=== PATIENT | female | born 1985 | race Caucasian/White ===

== ENCOUNTER 2019-03-19 20:19 | Emergency (ER) | payer MEDICAID | END 2019-03-19 22:15 | disposition left against medical advice (07) | LOC: JD.ED 20:19 | DX: Z53.21 Procedure and treatment not carried out due to patient leaving prior to being seen by health care provider (principal) ==

== ENCOUNTER 2019-03-20 13:07 | Emergency (ER) | payer MEDICAID ==
[2019-03-20] MEDS ORDERED: Sodium Chloride 0.9% 10 ML Syringe FLUSH PRN (14:12)
[2019-03-20] MEDS ORDERED: Ketorolac 30 MG/ML SDV IVPUSH ONE (14:16)
[2019-03-20] MEDS ORDERED: cefTRIAXone 2 GM in Sodium Chloride 0.9% 100 ML IV ONE (14:16)
--- NOTE | 2019-03-20 14:44 | EDM.PDOC ---
ED HPI GENERAL MEDICAL PROBLEM - General Chief Complaint: Abdominal Pain Stated Complaint: LT SIDE PAIN Time Seen by Provider: 03/20/19 13:33 Source of Information: Reports: Patient, RN Notes Reviewed History Limitations: Reports: No Limitations - History of Present Illness INITIAL COMMENTS - FREE TEXT/NARRATIVE: Patient is a 33-year-old female who presents to the ED for evaluation of left- sided flank pain. The patient states that this pain started yesterday. She notes that she has a history of previous kidney stones, on the right side. She states that the pain is sharp and stabbing and constantly there. She states it is hard to find a comfortable position. She also notes a history of chronic back problems; spinal stenosis, and degenerative disc disease. She notes that she also has a foul smell to her urine, but denies any dysuria or frequency or urgency. The patient has recently moved here from [place], and has not been able to set up primary care in this state, however she was care for her chronic issues in [place]. She is in the process of transferring her records so that she can seek management. She states that her pain is mostly in her left flank and into her left back. 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: Musculoskeletal History: Reports: Back Pain, Chronic Endocrine/Metabolic History: Reports: Hypothyroidism - Past Surgical History Female Surgical History: Reports: Tubal Ligation Social & Family History - Family History Family Medical History: Noncontributory - Tobacco Use Smoking Status *Q: Current Every Day Smoker Years of Tobacco use: 15 Packs/Tins Daily: 0.2 - Caffeine Use Caffeine Use: Reports: Coffee - Recreational Drug Use Recreational Drug Use: No ED ROS GENERAL - Review of Systems Review Of Systems: See Below Constitutional: Denies: Fever, Chills HEENT: Reports: No Symptoms Respiratory: Reports: No Symptoms Cardiovascular: Reports: No Symptoms Endocrine: Reports: No Symptoms GI/Abdominal: Denies: Constipation, Diarrhea, Nausea, Vomiting : Reports: Flank Pain (Left), Other (foul smelling urine). Denies: Discharge , Dysuria, Frequency, Urgency Musculoskeletal: Reports: Back Pain (chronic) Skin: Reports: No Symptoms Neurological: Reports: No Symptoms Psychiatric: Reports: No Symptoms Hematologic/Lymphatic: Reports: No Symptoms Immunologic: Reports: No Symptoms ED EXAM, RENAL/ - Physical Exam Exam: See Below Exam Limited By: No Limitations General Appearance: Alert, WD/WN, No Apparent Distress Eye Exam: Bilateral Eye: Normal Inspection Ears: Normal External Exam Nose: Normal Inspection Throat/Mouth: Normal Inspection, Normal Lips, Normal Teeth, Normal Gums, Normal Oropharynx, Normal Voice, No Airway Compromise Head: Atraumatic, Normocephalic Neck: Normal Inspection Respiratory/Chest: No Respiratory Distress, Lungs Clear, Normal Breath Sounds, No Accessory Muscle Use, Chest Non-Tender Cardiovascular: Normal Peripheral Pulses, Regular Rate, Rhythm, No Murmur GI/Abdominal: Normal Bowel Sounds, Soft, No Distention, Tender (left lateral upper quadrant) Back Exam: Normal Inspection, Full Range of Motion, CVA Tenderness (L), CVA Tenderness (R) Extremities: Normal Inspection, Normal Capillary Refill Neurological: Alert, Oriented, Normal Cognition, No Motor/Sensory Deficits Psychiatric: Normal Affect, Normal Mood Skin Exam: Warm, Dry, Intact, Normal Color, No Rash Course - Vital Signs Last Recorded V/S: Last Vital Signs Temp 99.3 F 03/20/19 13:17 Pulse 83 03/20/19 13:17 Resp 18 03/20/19 13:17 BP 121/73 03/20/19 13:17 Pulse Ox 99 03/20/19 13:17 - Orders/Labs/Meds Orders: Active Orders 24 hr Category Date Time Status Peripheral IV Care [RC] . DIRECTED Care 03/20/19 14:15 Ordered CULTURE URINE [RM] Routine Lab 03/20/19 14:15 Ordered Sodium Chloride 0.9% [Saline Flush] Med 03/20/19 14:12 Ordered 10 ml FLUSH ASDIRECTED PRN Peripheral IV Insertion Adult [OM.PC] Routine Oth 03/20/19 14:12 Ordered Medication Orders Sodium Chloride (Saline Flush) 10 ml FLUSH ASDIRECTED PRN PRN Reason: Keep Vein Open Last Admin: 03/20/19 14:30 Dose: 10 ml Labs: Laboratory Tests 03/20/19 03/20/19 03/20/19 Range/Units 13:40 14:20 14:20 WBC 8.62 (3.98-10.04) K/mm3 RBC 4.15 (3.98-5.22) M/mm3 Hgb 13.0 (11.2-15.7) gm/L Hct 39.0 (34.1-44.9) % MCV 94.0 (79.4-94.8) fl MCH 31.3 (25.6-32.2) pg MCHC 33.3 (32.2-35.5) g/dl RDW Std Deviation 42.4 (36.4-46.3) fL Plt Count 203 (182-369) K/mm3 MPV 9.9 (9.4-12.3) fl Neutrophils % (Manual) 79 H (40-60) % Band Neutrophils % 0 (0-10) % Lymphocytes % (Manual) 12 L (20-40) % Atypical Lymphs % 0 % Monocytes % (Manual) 8 (2-10) % Eosinophils % (Manual) 0 L (0.7-5.8) % Basophils % (Manual) 1 (0.1-1.2) Platelet Estimate Adequate RBC Morph Comment Normal Sodium 142 (136-145) mEq/L Potassium 3.7 (3.5-5.1) mEq/L Chloride 106 (98-107) mEq/L Carbon Dioxide 27 (21-32) mEq/L Anion Gap 12.7 (5-15) BUN 11 (7-18) mg/dL Creatinine 0.8 (0.55-1.02) mg/dL Est Cr Clr Drug Dosing 90.00 mL/min Estimated GFR (MDRD) > 60 (>60) mL/min BUN/Creatinine Ratio 13.8 L (14-18) Glucose 92 (74-106) mg/dL Calcium 8.7 (8.5-10.1) mg/dL Total Bilirubin 0.7 (0.2-1.0) mg/dL AST 14 L (15-37) U/L ALT 20 (14-59) U/L Alkaline Phosphatase 99 (46-116) U/L Total Protein 7.1 (6.4-8.2) g/dl Albumin 3.9 (3.4-5.0) g/dl Globulin 3.2 gm/dL Albumin/Globulin Ratio 1.2 (1-2) Urine Color Yellow (Yellow) Urine Appearance Slt cloudy H (Clear) Urine pH 7.0 (5.0-8.0) Ur Specific [place] 1.020 (1.005-1.030) Urine Protein 1+ H (Negative) Urine Glucose (UA) Negative (Negative) Urine Ketones Negative (Negative) Urine Occult Blood 2+ H (Negative) Urine Nitrite Negative (Negative) Urine Bilirubin Negative (Negative) Urine Urobilinogen 1.0 (0.2-1.0) Ur Leukocyte Esterase 1+ H (Negative) Urine RBC 30-40 H (0-5) /hpf Urine WBC 20-30 H (0-5) /hpf Ur Squamous Epith Cells 0-5 (0-5) /hpf Urine Bacteria Few (FEW) /hpf Urine Mucus Rare (FEW) /hpf Meds: Medications Generic Name Dose Route Start Last Admin Trade Name Freq PRN Reason Stop Dose Admin Sodium Chloride 10 ml 03/20/19 14:12 03/20/19 14:30 Saline Flush FLUSH 10 ml ASDIRECTED PRN Administration Keep Vein Open Discontinued Medications Generic Name Dose Route Start Last Admin Trade Name Freq PRN Reason Stop Dose Admin Ceftriaxone Sodium 2 gm/ 100 mls @ 200 mls/hr 03/20/19 14:16 03/20/19 14:29 Sodium Chloride IV 03/20/19 14:45 200 mls/hr ONETIME ONE Administration Ketorolac Tromethamine 30 mg 03/20/19 14:16 03/20/19 14:29 Toradol IVPUSH 03/20/19 14:17 30 mg ONETIME ONE Administration - Re-Assessments/Exams Free Text/Narrative Re-Assessment/Exam: 03/20/19 14:43 Patient presents to the ED for the evaluation of left flank pain. The triage nurse did obtain a UA at time of triage, and by the time the patient was evaluated UA resulted and didn't demonstrate some increased white blood cells and red blood cells in her urine, possible may be kidney stone with UTI superimposed. Have ordered IV to be placed, a CBC for further evaluation, and 2 g IV Rocephin for initial management. 03/20/19 15:[address] has been completed, and demonstrates the 3.2 mm stone within the proximal left ureter with minimal left kidney hydronephrosis. Several nonobstructing calculi seen within the right kidney area the largest nonobstructing stone within the right kidney measures 5.8 mm. Renal. Meds are slightly hyperdense raising possibility of medullary sponge kidney. Otherwise no other abnormalities are seen on the abdomen and pelvis CT. After her dose of antibiotics is done, I will provide the patient with some pain medications and recommend that she increase her oral fluid intake to try to help pass the stone. Will give recommendations for primary care providers in our area so that she may follow up for today's visit and establish care for her chronic problems. 03/20/19 15:46 Patient is reassessed at bedside, and feels a little bit better. I will provide the patient with some [place] 10/325's, Cipro, and a prescription for MiraLAX, she may fill the MiraLAX in [place] also portable to do so with insurance. As this is what she preferred. Departure - Departure Time of Disposition: 15:48 Disposition: Home, Self-Care 01 Condition: Fair Clinical Impression: Kidney stone UTI (urinary tract infection) Qualifiers: Urinary tract infection type: acute pyelonephritis Qualified Code(s): N10 - Acute pyelonephritis - Discharge Information *PRESCRIPTION DRUG MONITORING PROGRAM REVIEWED*: No *COPY OF PRESCRIPTION DRUG MONITORING REPORT IN PATIENT EUGENIO: No Prescriptions: Ciprofloxacin [Ciprofloxacin HCl] 500 mg PO BID #20 tab Hydrocodone/Acetaminophen [Hydrocodon-Acetaminophn 10-325] 1 tab PO Q6H #28 tablet Polyethylene Glycol 3350 [MiraLAX] 1 capful PO DAILY #1 cont Instructions: Urinary Tract Infection, Adult, [id number], Dietary Guidelines to Help Prevent Kidney Stones, Kidney Stones, [id number] Referrals: PCP,None [Primary Care Provider] - Forms: ED Department Discharge Additional Instructions: You have been evaluated in the ED today for your left sided flank pain. Your CT did demonstrate a kidney stone in your left ureter, this is the tube that goes from the kidney to your bladder. This should clear itself in a few days. You have been provided with a strainer to strain her urine to make sure that the stone has passed. Your right kidney also demonstrated kidney stones within the kidney as well. Your CT raises concern for medullary sponge kidney disease, this type of disease makes you more prevalent to getting kidney stones more frequently. Recommend that you increase her oral fluid intake to try to help pass the kidney stones. You have been provided with a prescription for [place] 10/325, Cipro 500 mg twice a day 10 days, and MiraLAX 1 capful daily. Please follow up with a primary care provider of your choice, our clinic number [phone]. Please do so within the next week or so for follow-up of this ER visit, and management of your chronic issues. Recommend that you transfer your old records from the facility in [place] to the facility of your choosing so that you may receive better follow-up care for your chronic issues. Please return to the ED if your symptoms should change or worsen. - My Orders Last 24 Hours: My Active Orders 03/20/19 14:12 Sodium Chloride 0.9% [Saline Flush] 10 ml FLUSH ASDIRECTED PRN Peripheral IV Insertion Adult [OM.PC] Routine 03/20/19 14:15 Peripheral IV Care [RC] . DIRECTED CULTURE URINE [RM] Routine - Assessment/Plan Last 24 Hours: My Active Orders 03/20/19 14:12 Sodium Chloride 0.9% [Saline Flush] 10 ml FLUSH ASDIRECTED PRN Peripheral IV Insertion Adult [OM.PC] Routine 03/20/19 14:15 Peripheral IV Care [RC] . DIRECTED CULTURE URINE [RM] Routine
--- NOTE | 2019-03-20 14:59 | CT ---
CT abdomen and pelvis Technique: Multiple axial sections were obtained from above the dome of the diaphragm inferiorly through the pubic symphysis. Intravenous and oral contrast was utilized. Study has been performed as ureteral stone protocol. Findings: Left kidney is minimally hydronephrotic. This finding is due to a 3.2 mm stone within the proximal left ureter near the UPJ. No other abnormal calcifications are seen along the ureters. Several nonobstructing calculi are seen within the right kidney. Largest nonobstructing stone within the right kidney measures 5.8 mm. Renal pyramids are slightly hyperdense raising the possibility of medullary sponge kidney. Visualized lung bases show nothing acute. Noncontrast appearance of the liver and spleen appears within normal limits. Adrenal glands show no nodule. Pancreas is within normal limits. Gallbladder contains no calcified gallstones. Aorta shows no aneurysm. No retroperitoneal adenopathy or mesenteric abnormalities are seen. No pelvic mass or adenopathy is seen. Appendix is seen which is normal in size. No free fluid or inflammatory change is seen. Bone window settings were reviewed which shows minimal degenerative change at L4-5. Impression: 1. Slightly hydronephrotic left kidney due to 3.2 mm obstructing stone located within proximal left ureter near the UPJ. 2. Several nonobstructing calculi within the right kidney. Possible medullary sponge kidney on both sides. 3. Other findings believed to be incidental as noted above. Diagnostic code #3
== END 2019-03-20 16:25 | disposition home or self-care (01) ==
LOC: JD.ED 13:07
DX: N10 Acute pyelonephritis (principal); N13.2 Hydronephrosis with renal and ureteral calculous obstruction; E03.9 Hypothyroidism, unspecified; F17.210 Nicotine dependence, cigarettes, uncomplicated; Z79.899 Other long term (current) drug therapy; Z98.51 Tubal ligation status
CPT/HCPCS: 36415; 74176; 80053; 81001; 85007; 85027; 87086; 87088; 87186; 96365; 96375; 99284; J0696; J1885; J7030

== ENCOUNTER 2020-11-30 13:31 | Emergency (ER) | payer SELFPAY ==
--- NOTE | 2020-11-30 13:57 | EDM.PDOC ---
ED HPI GENERAL MEDICAL PROBLEM - General Chief Complaint: ENT Problem Stated Complaint: DENTAL COMPLAINT Time Seen by Provider: 11/30/20 13:36 Source of Information: Reports: Patient, RN Notes Reviewed History Limitations: Reports: No Limitations - History of Present Illness INITIAL COMMENTS - FREE TEXT/NARRATIVE: Patient is a 35-year-old female who presents to the ED for the evaluation of her dental complaint. Patient notes that this started roughly 3 days ago, with some pain to a left lower molar, she notes that she has had issues with this tooth in the past. She does note today however that she is not been able to eat much due to the pain, and also is complaining of some left lower jaw swelling that was not present earlier. She has had no fevers, but states she is "chilled", she has had no nausea/vomiting/diarrhea. Patient notes that she recently moved back here from [place] and has not been able to set up care with a primary care provider nor a dentist at this time. She also states that she has run out of her levothyroxine, and states that she was on 50 mcg on her last dose. She has no other sick-like symptoms, cough/shortness of breath. 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 ED EXAM, ENT - Physical Exam Exam: See Below Exam Limited By: No Limitations General Appearance: Alert, WD/WN, No Apparent Distress Respiratory/Chest: No Respiratory Distress, Lungs Clear, Normal Breath Sounds, No Accessory Muscle Use, Chest Non-Tender Cardiovascular: Normal Peripheral Pulses, Regular Rate, Rhythm, No Edema Extremities: Normal Inspection, Normal Capillary Refill Neurological: Alert, Oriented, Normal Cognition, No Motor/Sensory Deficits Psychiatric: Anxious, Tearful Skin: Warm, Dry, Intact, Normal Color, No Rash Course - Vital Signs Last Recorded V/S: Last Vital Signs Temp 97.8 F 11/30/20 13:41 Pulse 97 11/30/20 13:41 Resp 14 11/30/20 13:41 BP 135/79 11/30/20 13:41 Pulse Ox 100 11/30/20 13:41 - Re-Assessments/Exams Free Text/Narrative Re-Assessment/Exam: 11/30/20 13:53 Patient presents to the ED for evaluation of her dental complaint, patient is somewhat dramatic in appearance and she is tearful and crying, obviously due to the amount of pain and uncertainty. Patient states that she has been out of her levothyroxine for some time, and was wondering if I could refill this, states that she was taking 50 mcg dose. I will go ahead and give her prescription for this, 1 month supply and give her some antibiotics/pain meds for ongoing management of her dental issue, I did state that she will have to see dentistry as well to get this issue taken care of, patient verbalized understanding. Departure - Departure Time of Disposition: 13:54 Disposition: Home, Self-Care 01 Condition: Good Clinical Impression: History of hypothyroidism, Pain, dental - Discharge Information *PRESCRIPTION DRUG MONITORING PROGRAM REVIEWED*: Yes *COPY OF PRESCRIPTION DRUG MONITORING REPORT IN PATIENT EUGENIO: No Prescriptions: Levothyroxine Sodium [Levothyroxine] 50 mcg PO DAILY #30 capsule Naproxen [Naprosyn] 500 mg PO Q12HR #14 tab Acetaminophen/HYDROcodone [[place] 325-5 MG] 1 tab PO Q6H PRN #10 tablet PRN Reason: Pain Penicillin V Potassium 500 mg PO Q6HR 10 Days #40 tab Instructions: Dental Abscess, [id number] Referrals: PCP,None [Primary Care Provider] - Additional Instructions: You have been evaluated in the ED for your dental pain. You have been provided with a script for Penicillin. Please take this medication as directed. (1 tab QID until gone). Please note this antibiotic can take up to 48 hours to provide coverage. If you do not notice an improvement in the swelling within 3 days time I recommend you seek care for reevaluation for change in antibiotics. You were given a prescription for Naprosyn, Please take 1 tab every 12 hours for pain relief. You were given a prescription for a strong pain medication, hydrocodone/acetaminophen 5/25 mg, please take 1 tab every 6 hours as needed for pain not relieved by Naprosyn alone. Please note this medication does contain Tylenol in it, so do not take more than 4000 mg in a 24-hour time span. These medications can be addictive, so please take as few as possible to achieve adequate pain control. These meds can also be quite constipating, recommend that you increase your oral fluid intake and take a stool softener like MiraLAX while taking these medications. Do not drive while taking this medication. You may use hot pack/ ice packs to the affected area as tolerated in 15-20 minute intervals. You will ultimately need to find a dentist to provide definitive management of your dental pain. [facility] in [place], [place], , is a clinic that has been known to take people that do not have dental insurance, and may provide payment plans. You might want to check with this provider, re garding your dental pain. You were given a prescription for continue your levothyroxine medication, you indicated that you took a 50 mcg dose, this has been provided to you in a 1 month supply. Highly recommend you call our clinic at [phone] to set up care with a primary care physician, so they can continue to prescribe you these medications and take care of your general health. Please return to the ED if your symptoms change or worsen. Sepsis Event Note (ED) - Evaluation Sepsis Screening Result: No Definite Risk - Focused Exam Vital Signs: Vital Signs Temp Pulse Resp BP Pulse Ox 11/30/20 13:41 97.8 F 97 14 135/79 100
== END 2020-11-30 14:30 | disposition home or self-care (01) ==
LOC: JD.ED 13:31
DX: K08.89 Other specified disorders of teeth and supporting structures (principal); E03.9 Hypothyroidism, unspecified; Z72.0 Tobacco use; Z79.899 Other long term (current) drug therapy
CPT/HCPCS: 99282; 99283